=== PATIENT | male | born 1955 | race Caucasian/White ===

== ENCOUNTER 2020-11-07 09:05 | Day surgery (SDC) | payer OTHER ==
[~2020-11-07 09:05] MED LIST: Metoclopramide 10 MG/2 ML SDV IV PRN
[2020-11-07] MEDS: Sodium Chloride 0.9% 1,000 ML IV SCH (09:39)
[2020-11-07] MEDS ORDERED: Propofol 200 MG/20 ML SDV ONE (10:20)
[2020-11-07 11:15] VITALS: BP 101/64; PULSE 58
--- NOTE | 2020-11-08 07:17 | OR ---
DATE OF OPERATION: 11/07/2020 SURGEON: Jon Valdes MD PREOPERATIVE DIAGNOSIS: Iron deficiency anemia. POSTOPERATIVE DIAGNOSIS: Iron deficiency anemia. PROCEDURE: Esophagogastroduodenoscopy with colonoscopy and polypectomy x2. ANESTHESIA: MAC. ESTIMATED BLOOD LOSS: Minimal. COMPLICATIONS: None. INDICATION FOR PROCEDURE: Patient is a 64-year-old male with history of iron deficiency anemia, has had previous colonoscopy 4-5 years ago and found to have polyps per patient. No previous gastroscopy. He is here today for EGD and colonoscopy. DESCRIPTION OF PROCEDURE: Informed consent was obtained from the patient. The patient was taken to the operating room and placed on table in left lateral decubitus position. Monitored anesthesia care was administered. Esophagogastroscope then advanced through the oral cavity, directed toward the duodenum. Duodenum was reached and appeared normal. Gastric antrum was normal. Scope was retroflexed in the stomach. Cardia and the remaining body of the stomach were also normal. Scope then withdrawn into the esophagus which was also otherwise unremarkable. The scope then withdrawn and then prepared for the colonoscopy. Digital rectal exam performed and was normal. Colonoscope then advanced through the anus directed toward the cecum. Cecum was reached and identified by appendiceal orifice and ileocecal valve. He did have a small semi-pedunculated polyp in the ascending colon. This was removed with hot snare polypectomy. Also had a small sessile polyp in the sigmoid colon. This was also removed with hot snare polypectomy. The colonoscope then further withdrawn. A few small diverticula in the sigmoid colon as well. The rectum was otherwise unremarkable. Colonoscope then fully withdrawn. FINDINGS: Normal EGD with colon polyps x2 and few diverticula in the sigmoid. RECOMMENDATIONS: We will follow up on pathology results. Otherwise, we would recommend repeat colonoscopy in 5 years. Continue iron supplementation and we would recommend evaluation for other forms of anemia. If the GI source is further suspected, we would recommend capsule endoscopy to assess the small bowel. NOEMY/MARGARITA /[id number]
== END 2020-11-07 11:18 | disposition home or self-care (01) ==
LOC: LB.SDS 09:05
PROVIDERS: ATTEND Surgery
DX: D12.2 Benign neoplasm of ascending colon (principal); D12.5 Benign neoplasm of sigmoid colon; K57.30 Diverticulosis of large intestine without perforation or abscess without bleeding; D50.9 Iron deficiency anemia, unspecified; I42.9 Cardiomyopathy, unspecified; F17.210 Nicotine dependence, cigarettes, uncomplicated; Z86.010 Personal history of colon polyps; Z98.890 Other specified postprocedural states
CPT/HCPCS: J2704; J7030

== ENCOUNTER 2024-05-11 08:17 | Day surgery (SDC) | payer OTHER ==
[2024-05-11] MEDS: Sodium Chloride 0.9% 1,000 ML IV SCH (09:03)
[2024-05-11] MEDS ORDERED: Glycopyrrolate 0.2 MG/ML 2 ML SDV ONE (10:15)
[2024-05-11] MEDS ORDERED: Lidocaine 1% 30 ML SDV ONE (10:15)
[2024-05-11 10:41] VITALS: BP 129/73; PULSE 57
== END 2024-05-11 11:46 | disposition home or self-care (01) ==
LOC: LB.SDS 08:17
PROVIDERS: ATTEND Surgery
DX: D12.3 Benign neoplasm of transverse colon (principal); I10 Essential (primary) hypertension; D64.9 Anemia, unspecified; Z86.0100 Personal history of colon polyps, unspecified
CPT/HCPCS: 88305; J2704; J3490; J7030